=== PATIENT | male | born 1995 | race Caucasian/White ===

== ENCOUNTER 2017-04-10 19:21 | Emergency (ER) | payer BC, MEDICAID, OTHER ==
[2017-04-10 19:47] VITALS: BP 149/82
--- NOTE | 2017-04-10 20:11 | EDM.PDOC ---
ED HPI GENERAL MEDICAL PROBLEM - General Chief Complaint: Chest Pain Stated Complaint: CHEST PAIN Time Seen by Provider: 04/10/17 20:05 Source of Information: Reports: Patient History Limitations: Reports: No Limitations - History of Present Illness INITIAL COMMENTS - FREE TEXT/NARRATIVE: Patient is a 21 year old man who fainted at work at [employer] at 9: 30 am on 04-06-17. He had gotten up to quickly and he fainted. This had never happened to him before. He has felt normal since but both his father and grandfather have Vanessa Parkinson White Syndrome and he knew that fainting could be a sign of WPW and he was concerned enough to come in [facility] to have an evaluation done. He feels normal with no complaints. It did happen in grade school once also. He had had 2 caffeinated beverages and he knew that his Grandpa was told to stop caffeinated beverages and has not had any caffeine or episodes since. Onset: Sudden Onset Date: 04/06/17 Onset Time: 09:30 Duration: Minutes: (20 seconds.) Location: Reports: Other (Fainted ) Quality: Reports: Same as Previous Episode (Both times he fainted.) Severity: Mild Improves with: Reports: None Worsens with: Reports: Other (Stress and caffeine.) Context: Reports: Other (Family history of father and grandfather) Associated Symptoms: Reports: No Other Symptoms - Related Data Allergies Allergy/AdvReac Type Severity Reaction Status Date / Time No Known Allergies Allergy Verified 04/10/17 19:35 Home Meds: Home Meds NK [No Known Home Meds] 01/08/16 [History] Past Medical History - Past Health History Medical/Surgical History: Denies Medical/Surgical History Social & Family History - Tobacco Use Smoking Status *Q: Never Smoker - Caffeine Use Caffeine Use: Reports: Tea - Recreational Drug Use Recreational Drug Use: No ED ROS GENERAL - Review of Systems Review Of Systems: See Below Constitutional: Reports: No Symptoms HEENT: Reports: No Symptoms Respiratory: Reports: No Symptoms Cardiovascular: Reports: No Symptoms Endocrine: Reports: No Symptoms GI/Abdominal: Reports: No Symptoms : Reports: No Symptoms Musculoskeletal: Reports: No Symptoms Skin: Reports: No Symptoms Neurological: Reports: Syncope Psychiatric: Reports: No Symptoms Hematologic/Lymphatic: Reports: No Symptoms Immunologic: Reports: No Symptoms ED EXAM, GENERAL - Physical Exam Exam: See Below Exam Limited By: No Limitations General Appearance: Alert, WD/WN, No Apparent Distress Eye Exam: Bilateral Eye: EOMI, Normal Fundi, Normal Inspection Ears: Normal External Exam, Normal Canal, Hearing Grossly Normal, Normal TMs Ear Exam: Bilateral Ear: Auricle Normal, Canal Normal, TM normal Nose: Normal Inspection, Normal Mucosa, No Blood Throat/Mouth: Normal Inspection, Normal Lips, Normal Teeth, Normal Gums, Normal Oropharynx, Normal Voice, No Airway Compromise Head: Atraumatic, Normocephalic Neck: Normal Inspection, Supple, Non-Tender, Full Range of Motion Respiratory/Chest: No Respiratory Distress, Lungs Clear, Normal Breath Sounds, No Accessory Muscle Use, Chest Non-Tender Cardiovascular: Normal Peripheral Pulses, Regular Rate, Rhythm, No Edema, No Gallop, No JVD, No Murmur, No Rub GI/Abdominal: Normal Bowel Sounds, Soft, Non-Tender, No Organomegaly, No Distention, No Abnormal Bruit, No Mass (Male) Exam: No Hernia, Normal Inspection, Normal Prostate, Circumcised Rectal (Males) Exam: Normal Exam, Normal Rectal Tone, Prostate Normal Back Exam: Normal Inspection, Full Range of Motion, NT Extremities: Normal Inspection, Normal Range of Motion, Non-Tender, Normal Capillary Refill, No Pedal Edema Neurological: Alert, Oriented, CN II-XII Intact, Normal Cognition, Normal Gait, Normal Reflexes, No Motor/Sensory Deficits Psychiatric: Normal Affect, Normal Mood Skin Exam: Warm, Dry, Intact, Normal Color, No Rash EKG INTERPRETATION EKG Date: 04/10/17 Rhythm: NSR [place]: Other (Atrial couplets.) P-Wave: Present QRS: Normal ST-T: Normal QT: Normal Course - Vital Signs Text/Narrative:: Unremarkable ED visit. No caffeine or alcohol until syncope is further worked up. He will see a [facility] PCP and get set up for an EP evaluation in Cardiology at [facility]. Last Recorded V/S: Last Vital Signs Temp 37.1 C 04/10/17 19:46 Pulse 82 04/10/17 19:46 Resp 12 04/10/17 19:46 BP 149/82 H 04/10/17 19:46 Pulse Ox 100 04/10/17 19:46 - Orders/Labs/Meds Orders: Active Orders 24 hr Category Date Time Status EKG Documentation Completion [RC] ASDIRECTED Care 04/10/17 20:09 Active CXR [Chest 2V] [CR] Stat Exams 04/10/17 20:10 Taken Head wo Cont [CT] Stat Exams 04/10/17 20:09 Taken EKG 12 Lead [EK] Routine Ther 04/10/17 20:08 Ordered Labs: Laboratory Tests 04/10/17 04/10/17 04/10/17 Range/Units 20:20 20:20 20:20 WBC 6.4 (4.5-12.0) X10-3/uL RBC 4.86 (4.30-5.75) x10(6)uL Hgb 14.6 (11.5-15.5) g/dL Hct 43.1 (30.0-51.3) % MCV 88.6 (80-96) fL MCH 30.0 (27.7-33.6) pg MCHC 33.9 (32.2-35.4) g/dL RDW 12.0 (11.5-15.5) % Plt Count 219 (125-369) X10(3)uL MPV 7.9 (7.4-10.4) fL Neut % (Auto) 53.8 (46-82) % Lymph % (Auto) 35.9 (13-37) % [place] % (Auto) 8.3 (4-12) % Eos % (Auto) 2 (1.0-5.0) % Baso % (Auto) 0 (0-2) % Neut # (Auto) 3.5 (1.6-8.3) # Lymph # (Auto) 2.3 (0.6-5.0) # [place] # (Auto) 0.5 (0.0-1.3) # Eos # (Auto) 0.1 (0.0-0.8) # Baso # (Auto) 0.0 (0.0-0.2) # Sodium 144 (135-145) mmol/L Potassium 4.0 (3.5-5.3) mmol/L Chloride 107 (100-110) mmol/L Carbon Dioxide 29 (21-32) mmol/L BUN 13 (7-18) mg/dL Creatinine 0.9 (0.70-1.30) mg/dL Est Cr Clr Drug Dosing 142.80 mL/min Estimated GFR (MDRD) > 60 (>60) BUN/Creatinine Ratio 14.4 (9-20) Glucose 96 (80-116) mg/dL Calcium 8.9 (8.6-10.2) mg/dL Total Bilirubin 1.7 H (0.1-1.3) mg/dL AST 16 (5-25) IU/L ALT 19 (12-36) U/L Alkaline Phosphatase 57 (56-112) IU/L Troponin I < 0.017 L (<0.017-0.056) ng/mL Total Protein 7.3 (6.0-8.0) g/dL Albumin 4.1 (3.5-5.2) g/dL Globulin 3.2 g/dL Albumin/Globulin Ratio 1.3 Departure - Departure Time of Disposition: 21:46 Disposition: Home, Self-Care 01 Condition: Good Clinical Impression: Syncope Instructions: Rwwlp-[id number]-Dhbhz Syndrome Referrals: PCP,None [Primary Care Provider] - Forms: ED Department Discharge Additional Instructions: Find a PCP and make an appointment with him to get a consultation to a media analytics manager for an EP study - My Orders Last 24 Hours: My Active Orders 04/10/17 20:08 EKG 12 Lead [EK] Routine 04/10/17 20:09 EKG Documentation Completion [RC] ASDIRECTED Head wo Cont [CT] Stat 04/10/17 20:10 CXR [Chest 2V] [CR] Stat - Assessment/Plan Last 24 Hours: My Active Orders 04/10/17 20:08 EKG 12 Lead [EK] Routine 04/10/17 20:09 EKG Documentation Completion [RC] ASDIRECTED Head wo Cont [CT] Stat 04/10/17 20:10 CXR [Chest 2V] [CR] Stat
--- NOTE | 2017-04-13 16:16 | CR ---
INDICATION: [id number] and syncope. CHEST: Two PA views and a lateral view of the chest were obtained 04/10/2017. No comparisons were available. The heart appeared normal in size and shape. The mediastinum and bony thorax were unremarkable. Overlying EKG leads are noted. An active infiltrate or effusion was not identified. IMPRESSION: No active disease. MTDD
== END 2017-04-10 21:50 | disposition home or self-care (01) ==
LOC: FB.ED 19:21
DX: R55 Syncope and collapse (principal)
CPT/HCPCS: 36415; 70450; 71020; 80053; 84484; 85025; 93005; 99285

== ENCOUNTER → 2020-06-25 | Day surgery (SDC) | payer BC, OTHER ==
[~2020-06-25] MED LIST: Dexamethasone 4 MG/ML 5 ML MDV IVPUSH ONE; Iopamidol 755 Mg/ML 100 ML Bottle IV ONE; Lactated Ringers 1,000 ML IV SCH; Lidocaine 2% Viscous Solution 15 ML Cup PO ONE; Midazolam 1 MG/ML 2 ML SDV IV ONE; Morphine 2 MG/ML SYRINGE IVPUSH ONE; Morphine 2 MG/ML SYRINGE IVPUSH STA; Morphine 2 MG/ML SYRINGE ONE; Ondansetron 4 MG/2 ML SDV IVPUSH ONE; Propofol 200 MG/20 ML SDV IV ONE; Sodium Chloride 0.9% 1,000 ML IV SCH; Succinylcholine 200 MG/10 ML MDV IV ONE; fentaNYL 100 MCG/2 ML SDV IV ONE
[2020-06-25] MEDS: Sodium Chloride 0.9% 10 ML Syringe FLUSH PRN ×2 (20:47→23:15)
--- NOTE | 2020-06-25 23:59 | PCM.OPNOTE ---
- General Post-Op/Procedure Note Date of Surgery/Procedure: 06/25/20 Operative Procedure(s): Removal of Rectal Foreign Body Findings: Vibrator Device lodged in rectum Pre Op Diagnosis: Foreign Body in Rectum Post-Op Diagnosis: Same Anesthesia Technique: General ET Tube Primary Surgeon: Uriel Carson Pathology: Rectal Foreign Body Removed EBL in mLs: 0 Complications: None Condition: Good
[2020-06-26 01:34] VITALS: BP 138/66; PULSE 93
--- NOTE | 2020-06-26 04:22 | EDM.PDOC ---
ED HPI GENERAL MEDICAL PROBLEM - General Chief Complaint: Abdominal Pain Stated Complaint: ABDOMINAL PAIN Time Seen by Provider: 06/25/20 20:45 Source of Information: Reports: Patient History Limitations: Reports: No Limitations - History of Present Illness INITIAL COMMENTS - FREE TEXT/NARRATIVE: Patient presented to the Ed because of FB in his rectum. He inserted a vibrator in his rectum and now he can't retrieve it. He did try to remove it but it keeps slipping from his fingers. - Related Data Allergies Allergy/AdvReac Type Severity Reaction Status Date / Time No Known Allergies Allergy Verified 04/10/17 19:35 Home Meds: Home Meds NK [No Known Home Meds] 01/08/16 [History] Past Medical History - Past Health History Medical/Surgical History: Denies Medical/Surgical History - Past Surgical History GI Surgical History: Reports: Colonoscopy Other GI Surgeries/Procedures: June 2020. Social & Family History - Caffeine Use Caffeine Use: Reports: Tea - Alcohol Use Days Per Week of Alcohol Use: 2 Number of Drinks Per Day: 1 Total Drinks Per Week: 2 - Recreational Drug Use Recreational Drug Use: No ED ROS GENERAL - Review of Systems Review Of Systems: See Below Constitutional: Reports: No Symptoms HEENT: Reports: No Symptoms Respiratory: Reports: No Symptoms Cardiovascular: Reports: No Symptoms Endocrine: Reports: No Symptoms GI/Abdominal: Reports: No Symptoms : Reports: No Symptoms Musculoskeletal: Reports: No Symptoms Skin: Reports: No Symptoms Neurological: Reports: No Symptoms Psychiatric: Reports: No Symptoms Hematologic/Lymphatic: Reports: No Symptoms Immunologic: Reports: No Symptoms ED EXAM, GENERAL - Physical Exam Exam: See Below Exam Limited By: No Limitations General Appearance: Alert, No Apparent Distress Nose: Normal Inspection, Normal Mucosa Throat/Mouth: Normal Inspection, Normal Lips, Normal Teeth Head: Atraumatic, Normocephalic Neck: Normal Inspection, Supple Respiratory/Chest: No Respiratory Distress, Lungs Clear, Normal Breath Sounds Cardiovascular: Normal Peripheral Pulses, Regular Rate, Rhythm, No Edema, No Gallop GI/Abdominal: Normal Bowel Sounds, Soft, Non-Tender, No Organomegaly Rectal (Males) Exam: Normal Rectal Tone Back Exam: Normal Inspection Extremities: Normal Inspection Neurological: Alert, Oriented, CN II-XII Intact, Normal Cognition Course - Vital Signs Text/Narrative:: labs from the clinic was reviewed with the patient I did dry to remove the FB with a forcept without success Surgery consult was done with Dr Carson who evaluated patient i the ED Last Recorded V/S: Last Vital Signs Temp 36.6 C 06/26/20 01:10 Pulse 93 06/26/20 01:30 Resp 16 06/26/20 01:30 BP 138/66 06/26/20 01:30 Pulse Ox 100 06/26/20 01:30 - Orders/Labs/Meds Orders: Active Orders 24 hr Category Date Time Status Ready for Discharge [RC] PER UNIT ROUTINE Care 06/26/20 00:02 Active Lactated Ringers [Ringers, Lactated] 1,000 ml Med 06/25/20 23:10 Active IV ASDIRECTED Sodium Chloride 0.9% [Saline Flush] Med 06/25/20 20:14 Active 10 ml FLUSH ASDIRECTED PRN Saline Lock Insert [OM.PC] Routine Oth 06/25/20 20:14 Ordered Medication Orders Lactated Ringer's (Ringers, Lactated) 1,000 mls @ 125 mls/hr IV ASDIRECTED COLLETTE Last Admin: 06/25/20 23:15 Dose: 125 mls/hr Documented by: JENARO Sodium Chloride (Saline Flush) 10 ml FLUSH ASDIRECTED PRN PRN Reason: Keep Vein Open Last Admin: 06/25/20 23:15 Dose: 10 ml Documented by: Admin: 06/25/20 20:47 Dose: 10 ml Documented by: EDWIN Meds: Medications Generic Name Dose Route Start Last Admin Trade Name Freq PRN Reason Stop Dose Admin Lactated Ringer's 1,000 mls @ 125 mls/hr 06/25/20 23:10 06/25/20 23:15 Ringers, Lactated IV 125 mls/hr ASDIRECTED COLLETTE Administration Sodium Chloride 10 ml 06/25/20 20:14 06/25/20 23:15 Saline Flush FLUSH 10 ml ASDIRECTED PRN Administration Keep Vein Open Discontinued Medications Generic Name Dose Route Start Last Admin Trade Name Freq PRN Reason Stop Dose Admin Sodium Chloride 1,000 mls @ 999 mls/hr 06/25/20 20:30 Normal Saline IV ASDIRECTED COLLETTE Iopamidol 100 ml 06/25/20 20:26 06/25/20 21:25 Isovue-370 (76%) IV 06/25/20 20:27 Not Given . DIRECTED ONE Lidocaine HCl 15 ml 06/25/20 21:53 06/25/20 21:57 Xylocaine 2% Viscous PO 06/25/20 21:54 15 ml ONETIME ONE Administration Morphine Sulfate 2 mg 06/25/20 20:28 06/25/20 23:43 Morphine IVPUSH 06/25/20 20:29 Not Given NOW STA Morphine Sulfate 2 mg 06/25/20 20:38 06/25/20 20:45 Morphine IVPUSH 06/25/20 20:39 2 mg ONETIME ONE Administration Morphine Sulfate Confirm 06/25/20 20:35 06/25/20 23:42 Morphine Administered 06/25/20 20:36 Not Given Dose 2 mg .ROUTE .STK-MED ONE Departure - Departure Time of Disposition: 01:30 Disposition: Still A Patient 30 Condition: Good Clinical Impression: Rectal foreign body - Discharge Information Sepsis Event Note (ED) - Evaluation Sepsis Screening Result: No Definite Risk - Focused Exam Vital Signs: Vital Signs Temp Temp Pulse Resp BP Pulse Ox 06/26/20 01:30 93 16 138/66 100 06/26/20 01:10 36.6 C 79 16 132/74 100 06/26/20 00:55 91 16 128/70 100 06/26/20 00:45 97 16 118/65 100 06/26/20 00:35 36.7 C 94 16 127/78 100 06/26/20 00:25 89 17 125/65 99 06/26/20 00:20 88 16 117/66 99 06/26/20 00:15 92 16 126/70 100 06/26/20 00:10 92 15 124/66 100 06/26/20 00:04 37.2 C 101 H 19 129/71 100 06/25/20 23:00 36.8 C 89 18 133/81 98 06/25/20 20:40 36.8 C 90 18 152/75 H 100 - My Orders Last 24 Hours: My Active Orders 06/25/20 20:14 Sodium Chloride 0.9% [Saline Flush] 10 ml FLUSH ASDIRECTED PRN Saline Lock Insert [OM.PC] Routine - Assessment/Plan Last 24 Hours: My Active Orders 06/25/20 20:14 Sodium Chloride 0.9% [Saline Flush] 10 ml FLUSH ASDIRECTED PRN Saline Lock Insert [OM.PC] Routine
--- NOTE | 2020-06-26 04:42 | OR ---
DATE OF OPERATION: 06/25/2020 SURGEON: Uriel Carson MD PREOPERATIVE DIAGNOSIS: Foreign body of the rectum. POSTOPERATIVE DIAGNOSIS: Foreign body of the rectum. OPERATION PERFORMED: Removal of rectal foreign body. INDICATIONS FOR SURGERY: This 25-year-old male presented to the emergency room several hours after inserting a foreign body into his rectum. He was unable to remove this foreign body and presents for treatment. Evaluation has identified the presence of a vibrator in the rectum, and the patient comes for removal of this foreign body. FINDINGS: Located high in the rectum, there is a vibrating device approximately 7 inches in length. The entire device appeared to be removed with no indication of any retained foreign body and no indication of any injury to the rectum. PROCEDURE IN DETAIL: The patient was taken to the operating room. He was given general endotracheal anesthesia, and he is placed in the dorsal lithotomy position. With good muscle relaxation, digital rectal exam is performed, and the foreign body is palpable at the tip of the examining finger. Gentle pressure on the abdomen was then performed, and with this, the foreign body is able to be pushed into the lower part of the rectum, where with careful manipulation, the foreign body is brought out where it could be secured with the rectal examining hand and then withdrawn. Examination showed no blood on the foreign body, and digital rectal exam indicated no palpable injury to the rectum. The patient was then awakened, extubated, and taken from the operating room in satisfactory condition. ESTIMATED BLOOD LOSS: Zero. COMPLICATIONS: None. PROGNOSIS: Good. /[id number] MARA/ÁNGEL
--- NOTE | 2020-06-26 04:42 | PREOP ---
ADMISSION DATE: 06/25/2020 HISTORY OF PRESENT ILLNESS: This 25-year-old male presented to the emergency room this evening complaining of some abdominal pain and with a history that he had inserted a vibrator device into his rectum and now was unable to retrieve that device. He says that this was inserted approximately 1530 this afternoon. He has some discomfort when pressure is applied to the area of the device, but at rest he is not having any abdominal pain at this time. He has tried to pass this by passing a bowel movement and has been unsuccessful. Abdominal x-ray has been obtained and this confirms the presence of a foreign body in the lower abdomen consistent with the patient's description of the device. PAST MEDICAL HISTORY: Shows previous surgery was ankle surgery but he had no problems with anesthesia. He has not had any previous abdominal surgery. He is generally healthy. Does not take any routine prescription medications and has no known drug allergies. The patient does smoke a few cigarettes occasionally. FAMILY HISTORY: Noncontributory. SOCIAL HISTORY: The patient is not and he lives in [facility]. SYSTEM REVIEW: The patient has not been having any recent coughs, shortness of breath, or headache. No unexplained fever or change in taste or smell. No chest pain or palpitations. Generally does not have any abdominal pain or health-related complaints. PHYSICAL EXAMINATION: VITAL SIGNS: Temperature is 98.2, pulse 90, blood pressure is 152/75. GENERAL: The patient is an adult male. He is currently in no acute distress, ambulates easily. HEENT: Head is normocephalic. There is no scleral icterus. HEART: Regular without murmur. LUNGS: Clear. No cervical masses are noted. ABDOMEN: Soft. There is tenderness with palpation in the mid abdomen which causes referred pain down into the pelvis. Mass is slightly detectable, although somewhat indistinct on exam. No other abdominal masses are noted. RECTAL: No tenderness at the anal opening. On digital exam, high in the rectum, the firm foreign body is palpable at the tip of the finger, but not able to be grasped from below. EXTREMITIES: Show no obvious deformity. IMPRESSION: Foreign body of the rectum. PLAN: The patient will be taken to the operating room, placed under general anesthesia to obtain abdominal and rectal relaxation. Attempt will be made to remove the device with this assistance, but if we are unable to safely remove the device in that manner, then I would plan for laparotomy with removal of the foreign body. I discussed the proposed operative procedure with the patient, reviewed indications, options and risks such as, but not limited to bleeding, infection, and colon injury. He appears to understand and agrees to proceed. /[id number] MARA/ÁNGEL NELSON
== END | disposition home or self-care (01) ==
LOC: FB.ED 20:06 → FB.SDS 22:53
PROVIDERS: ATTEND Surgery
DX: T18.5XXA Foreign body in anus and rectum, initial encounter (principal)
CPT/HCPCS: 00902-QZ; 96374; 99284; 99284-25; A9270-GY; J0330; J1100; J2250; J2270; J2405; J2704; J3010; J7120

== ENCOUNTER 2022-10-27 20:09 | Emergency (ER) | payer OTHER ==
[2022-10-27 20:54] LABS: BASOPHILS PERCENT AUTO 0.1 % (0.3-3.8); EOSINOPHILS ABSOLUTE AUTO 0.1 x10-3/uL (0.0-0.6); EOSINOPHILS PERCENT AUTO 0.9 % (0.1-6.8); HEMATOCRIT 46.3 % (38.3-50.1); HEMOGLOBIN 15.6 g/dL (12.9-17.7); LYMPHOCYTES PERCENT AUTO 28.5 % (15.8-45.3); MEAN CORPUSCULAR HEMOGLOBIN 30.3 pg (27.0-33.3); MEAN CORPUSCULAR HGB CONC 33.8 g/dL (28.7-35.3); MEAN CORPUSCULAR VOLUME 89.8 fL (80.8-98.7); MEAN PLATELET VOLUME 7.8 fL (6.7-11.0); MONOCYTES ABSOLUTE AUTO 0.3 x10-3/uL (0.0-1.2); MONOCYTES PERCENT AUTO 4.9 % (5.5-15.2); NEUTROPHILS ABSOLUTE AUTO 4.6 x10-3/uL (1.7-6.9); NEUTROPHILS PERCENT AUTO 65.6 % (40.3-71.8); PLATELET COUNT,PLT 241 x10(3)uL (117-477); RED BLOOD CELL COUNT 5.15 x10(6)uL (3.90-5.90); RED CELL DISTRIBUTION WIDTH 12.9 % (12.4-15.0)
[2022-10-27 20:57] LABS: BLOOD UREA NITROGEN,BUN 16 mg/dL (7-18); BUN/CREATININE RATIO 14.5 (9-20); CALCIUM 8.8 mg/dL (8.6-10.2); CARBON DIOXIDE,CO2 28 mmol/L (21-32); CHLORIDE,CL 105 mmol/L (100-110); CREATININE 1.1 mg/dL (0.70-1.30); ESTIMATED GFR 95 mL/min (>60); GLUCOSE RANDOM 109 mg/dL (80-116); POTASSIUM,K 3.5 mmol/L (3.5-5.3); SODIUM,NA 144 mmol/L (135-145)
[2022-10-27 21:03] LABS: A/G RATIO 1.4; ALANINE AMINOTRANSFERASE,ALT 24 U/L (12-36); ALBUMIN 4.6 g/dL (3.5-5.2); ALKALINE PHOSPHATASE 64 IU/L (56-112); ASPARTATE AMNIOTRANSFERASE,AST 25 IU/L (5-25); BILIRUBIN TOTAL 1.2 mg/dL (0.1-1.3); PROTEIN TOTAL,TP 7.9 g/dL (6.0-8.0)
[2022-10-27 21:06] LABS: INR 1.01 (1.00-1.24); PROTHROMBIN TIME 10.4 sec (9.0-11.1)
[2022-10-27 21:08] LABS: PTT,PARTIAL THROMBOPLSTIN TIME 26.4 SECONDS (24.4-33.2)
[2022-10-27 23:23] VITALS: BP 115/78; PULSE 89
== END 2022-10-27 22:12 | disposition home or self-care (01) ==
LOC: FB.ED 20:09
DX: S46.912A Strain of unspecified muscle, fascia and tendon at shoulder and upper arm level, left arm, initial encounter (principal); V47.5XXA Car driver injured in collision with fixed or stationary object in traffic accident, initial encounter; Y92.410 Unspecified street and highway as the place of occurrence of the external cause
CPT/HCPCS: 36415; 70450; 73030-LT; 80053; 85025; 85610; 85730; 99284